=== PATIENT | female | born 1930 | race Caucasian/White ===

== ENCOUNTER 2016-04-19 12:13 | Emergency (ER) | payer MEDICARE | END 2016-04-19 14:11 | disposition home or self-care (01) | LOC: D.ER 12:13 | DX: T18.0XXA Foreign body in mouth, initial encounter (principal); X58.XXXA Exposure to other specified factors, initial encounter; Y93.89 Activity, other specified; Y92.019 Unspecified place in single-family (private) house as the place of occurrence of the external cause; E11.9 Type 2 diabetes mellitus without complications; H81.09 Meniere's disease, unspecified ear ==